=== PATIENT | male | born 1975 | race Two or more races ===

== ENCOUNTER 2018-09-30 07:29 | Inpatient (IN) | payer SELFPAY ==
[2018-09-30] VITALS (7 sets, daily range): BP systolic 98–165; BP diastolic 66–99
[~2018-09-30] VITALS: Ht 165.1 cm; Wt 63.0 kg
--- NOTE | 2018-09-30 07:24 | NUR ---
ED Nurse Note: PT BROUGHT IN BY [id number] FROM STREETS. AOX3 - PT NOT ORIENTED TO TIME. PER EMS, PT WAS PICKED UP FROM AN INTERSECTION AFTER FALLING DUE TO ETOH INTOXICATION. PER EMS, NO LOC. PT C/O FACIAL PAIN, 04/13. PT PRESENTS WITH BILATERAL KNEE ABRASIONS, LACERATION ABOVE RIGHT EYEBROW, ABRASION TO LEFT CHEEK AND SWELLING AROUND BILATERAL ORBITS, BILATERAL CHEEKS, AND LIPS. ONLY ACTIVELY BLEEDING SITE IS LACERATION ABOVE RIGHT EYEBROW. FACE CLEANED AND LACERATION DRESSED WITH GAUZE.
--- NOTE | 2018-09-30 07:36 | Emergency Room Report ---
History of Present Illness General Chief Complaint: Multiple Trauma/Fall Source: Patient, EMS Present Illness HPI Patient brought in by paramedics Patient was found on the street Moderate facial trauma Patient reports that he is an alcoholic and tripped and fell Denies any focal weakness however he complains of pain throughout his facial area Denies any chest pain or shortness of breath He feels anxious Denies any vomiting or diarrhea Denies any visual changes Allergies: Coded Allergies: No Known Allergies (Unverified , 09/30/18) Patient History Past Medical History: see triage record Pertinent Family History: none Reviewed Nursing Documentation: PMH: Agreed; PSxH: Agreed Nursing Documentation-PM Past Medical History: No History, Except For Hx Diabetes: Yes Review of Systems All Other Systems: negative except mentioned in HPI Physical Exam Vital Signs Date Time Temp Pulse Resp B/P (MAP) Pulse Ox O2 Delivery O2 Flow Rate FiO2 09/30/18 07:16 97.2 117 16 165/89 99 Room Air Sp02 EP Interpretation: reviewed, normal General Appearance: mild distress - in acute pain Head: other - Facial trauma including hematoma some abrasions involving bilateral maxillary area Eyes: bilateral eye PERRL ENT: dry mucus membranes Neck: supple, no meningismus Respiratory: lungs clear, no respiratory distress, no retraction Cardiovascular #1: no gallop, no JVD, tachycardia Gastrointestinal: non tender, soft Musculoskeletal: other - Patient moving extremities without obvious focal deficit, multiple abrasions however involving the facial area also bilateral hands Neurologic: alert, oriented x3 Skin: other - as above Lymphatic: no adenopathy Medical Decision Making Diagnostic Impression: Primary Impression: Alcohol withdrawal Additional Impression: Multiple injuries due to trauma ER Course Upon initial arrival patient has multiple imaging performed regarding Possible trauma to the facial region Blood work reveals some abnormalities patient further hydrated patient remains unstable throughout his stay Tremulous and uneasy Continues to ask for medication for sleep CT imaging does not reveal any obvious acute fractures or bleeding Given the patient's presentation and he is unstable for outpatient disposition Labs Test 09/30/18 07:53 White Blood Count 5.3 K/UL (4.8-10.8) Red Blood Count 4.64 M/UL (4.70-6.10) Hemoglobin 12.4 G/DL (14.2-18.0) Hematocrit 36.0 % (42.0-52.0) Mean Corpuscular Volume 78 FL (80-99) Mean Corpuscular Hemoglobin 26.8 PG (27.0-31.0) Mean Corpuscular Hemoglobin Concent 34.5 G/DL (32.0-36.0) Red Cell Distribution Width 14.9 % (11.6-14.8) Platelet Count 203 K/UL (150-450) Mean Platelet Volume 6.4 FL (6.5-10.1) Neutrophils (%) (Auto) 68.6 % (45.0-75.0) Lymphocytes (%) (Auto) 21.4 % (20.0-45.0) Monocytes (%) (Auto) 8.9 % (1.0-10.0) Eosinophils (%) (Auto) 0.0 % (0.0-3.0) Basophils (%) (Auto) 1.1 % (0.0-2.0) Sodium Level 132 MMOL/L (136-145) Potassium Level 3.4 MMOL/L (3.5-5.1) Chloride Level 89 MMOL/L (98-107) Carbon Dioxide Level 24 MMOL/L (21-32) Anion Gap 19 mmol/L (5-15) Blood Urea Nitrogen 7 mg/dL (7-18) Creatinine 1.0 MG/DL (0.55-1.30) Estimat Glomerular Filtration Rate > 60 mL/min (>60) Glucose Level 213 MG/DL (74-106) Calcium Level 8.5 MG/DL (8.5-10.1) Total Bilirubin 0.6 MG/DL (0.2-1.0) Aspartate Amino Transf (AST/SGOT) 423 U/L (15-37) Alanine Aminotransferase (ALT/SGPT) 222 U/L (12-78) Alkaline Phosphatase 139 U/L (46-116) Total Protein 7.1 G/DL (6.4-8.2) Albumin 3.7 G/DL (3.4-5.0) Globulin 3.4 g/dL Albumin/Globulin Ratio 1.1 (1.0-2.7) Lipase 79 U/L (73-393) Serum Alcohol 403 mg/dL Rhythm Strip Diag. Results EP Interpretation: yes Rate: 95 Rhythm: NSR, no PVC's, no ectopy CT/MRI/US Diagnostic Results CT/MRI/US Diagnostic Results : Impression CT C-spine no acute disease CT facialIMPRESSION: Moderate soft tissue contusions as described above. Left-sided nasal fracture, age indeterminate. This is probably old. Old left medial and anteromedial orbital wall fractures. CT headImpression: No acute intracranial bleed, mass effect or edema. Mild atrophy of the brain. Nonspecific white matter hypoattenuation probably due to chronic small vessel disease. Soft tissue contusions right periorbital and left frontal temporal scalp. Last Vital Signs Date Time Temp Pulse Resp B/P (MAP) Pulse Ox O2 Delivery O2 Flow Rate FiO2 09/30/18 07:16 97.2 117 16 165/89 99 Room Air Status: improved Disposition: ADMITTED INPATIENT Condition: Serious Nicola Yee DO Sep 30, 2018 07:36
[2018-09-30] MEDS ORDERED: LORazepam Inj 2mg/ml 1ml IV ONE ×3 (07:45→15:30)
[2018-09-30] MEDS ORDERED: Ketorolac 30mg Inj IV ONE (07:45)
--- NOTE | 2018-09-30 07:55 | NUR ---
ED Nurse Note: PT TO CT VIA VAL
--- NOTE | 2018-09-30 08:06 | NUR ---
ED Nurse Note: PT BACK FROM CT VIA VAL. PER RADIOLOGY, PT UNABLE TO REMAIN STILL. CT NOT COMPLETED.
[2018-09-30 08:10] LABS: ANION GAP 19 mmol/L (5-15); BLOOD UREA NITROGEN 7 mg/dL (7-18); CALCIUM 8.5 MG/DL (8.5-10.1); CARBON DIOXIDE 24 MMOL/L (21-32); CHLORIDE 89 MMOL/L (98-107); POTASSIUM 3.4 MMOL/L (3.5-5.1); SODIUM 132 MMOL/L (136-145)
[2018-09-30 08:11] LABS: BASOPHILS % (AUTO) 1.1 % (0.0-2.0); HEMOGLOBIN 12.4 G/DL (14.2-18.0); LYMPHOCYTES % (AUTO) 21.4 % (20.0-45.0); MEAN CORPUSCULAR VOLUME 78 FL (80-99); MONOCYTES % (AUTO) 8.9 % (1.0-10.0); NEUTROPHILS % (AUTO) 68.6 % (45.0-75.0); PLATELET COUNT 203 K/UL (150-450); RED BLOOD COUNT 4.64 M/UL (4.70-6.10); RED CELL DISTRIBUTION WIDTH 14.9 % (11.6-14.8); WHITE BLOOD COUNT 5.3 K/UL (4.8-10.8)
[2018-09-30 08:15] LABS: ALANINE AMINOTRANSFERASE 222 U/L (12-78); ALBUMIN 3.7 G/DL (3.4-5.0); ALBUMIN/GLOBULIN RATIO 1.1 (1.0-2.7); ALKALINE PHOSPHATASE 139 U/L (46-116); ASPARTATE AMINO TRANSFERASE 423 U/L (15-37); BILIRUBIN,TOTAL 0.6 MG/DL (0.2-1.0)
--- NOTE | 2018-09-30 08:35 | NUR ---
ED Nurse Note: RADIOLOGY AT BEDSIDE TO REATTEMPT CT. PT TO CT VIA GURNEY.
--- NOTE | 2018-09-30 09:00 | NUR ---
ED Nurse Note: PT BACK FROM CT VIA VAL. RADIOLOGY UNABLE TO CT PT DUE TO PT'S INABILITY TO REMAIN STILL. DR ELAINE HICKS.
[2018-09-30] MEDS ORDERED: Midazolam 2mg/2ml Inj IVP ONE (09:15)
--- NOTE | 2018-09-30 09:30 | NUR ---
ED Nurse Note: RADIOLOGY CALLED FOR CT REATTEMPT.
--- NOTE | 2018-09-30 09:35 | NUR ---
ED Nurse Note: RADIOLOGY AT BEDSIDE. PT TO CT VIA GURNEY ACCOMPANIED BY PRIMARY RN AND TECH.
--- NOTE | 2018-09-30 09:50 | NUR ---
ED Nurse Note: PT BACK FROM CT VIA VAL ACCOMPANIED BY PRIMARY RN AND TECH. CT COMPLETED.
--- NOTE | 2018-09-30 10:24 | Diagnostic Imaging Report ---
Indication: Headache. Trauma Technique: Contiguous 5 mm thick transaxial imaging of the head obtained in a Siemens Sensation [address] scanner. Soft tissue and bone windows generated. Automatic Exposure Control was utilized. Total Dose length Product (DLP): 1351.[address] Dose Index Volume (CTDIvol): 70.38 mGy Comparison: none Findings: There is mild prominence of the ventricles, basal cisterns, and cerebral sulci consistent with atrophy. Mild, nonspecific, white matter hypoattenuation is noted throughout the brain consistent with chronic small vessel disease. There is no midline shift, edema, acute hemorrhage, mass effect, or abnormal extra-axial fluid collections. There is a right periorbital soft tissue swelling and left frontal temporal soft tissue swelling noted. No acute fracture identified. Impression: No acute intracranial bleed, mass effect or edema. Mild atrophy of the brain. Nonspecific white matter hypoattenuation probably due to chronic small vessel disease. Soft tissue contusions right periorbital and left frontal temporal scalp. The CT scanner at [facility] is accredited by the [employer] and the scans are performed using dose optimization techniques as appropriate to a performed exam including Automatic Exposure control.
--- NOTE | 2018-09-30 10:31 | Diagnostic Imaging Report ---
Indication: Facial trauma and pain Technique: Continuous helical transaxial imaging of the maxillofacial structures obtained without intravenous contrast administration. Coronal 2-D reformats were also obtained. Study obtained in a Siemens sensation [address] Automatic Exposure Control was utilized. Total Dose length Product (DLP): 625.[address] Dose Index Volume (CTDIvol): 28.19 mGy Comparison: None Findings: There are areas of soft tissue swelling involving the left facial region, bilateral periorbital regions, frontal and temporal scalp on the left. Pre-maxillary and perimandibular soft tissue swelling also demonstrated. Findings consistent with soft tissue contusion/laceration injuries. There is evidence of an old left medial orbital wall fracture which also involves the anteromedial part of the left orbital floor. There is some herniation of intraorbital fat into Joe cells in the anterior ethmoid region. There is no definite acute fracture of the orbit identified. There is a fracture of the left nasal bone. Acuity of this is not certain as this may be old. There is mucosal thickening within the maxillary sinus and portions of the ethmoid sinus. The globes and remainder of the soft tissue orbital structures appear normal. There is no proptosis or retrobulbar hemorrhage. The mastoids are clear. The zygomatic bone, visualized mandible and TMJ and other osseous structures on this examination appear intact. IMPRESSION: Moderate soft tissue contusions as described above. Left-sided nasal fracture, age indeterminate. This is probably old. Old left medial and anteromedial orbital wall fractures. [place] [facility] [place] by the [employer] and the scans are performed using dose optimization techniques as appropriate to a performed exam including Automatic Exposure control.
[2018-09-30] MEDS ORDERED: Thiamine 100mg tab ORAL ONE (10:45)
--- NOTE | 2018-09-30 10:46 | Diagnostic Imaging Report ---
Indication: Neck pain. Technique: Continuous helical imaging of the cervical spine was obtained transaxially from the skull base to the upper thoracic spine. 2-D coronal and sagittal reformatted images were obtained. Automatic Exposure Control was utilized. Total Dose length Product (DLP): 288.[address] Dose Index Volume (CTDIvol): 12.94 mGy Comparison: None Findings: There is no evidence of an acute fracture or malalignment. Atlantoaxial alignment appears normal. Height and configuration of the vertebral bodies and intervertebral discs are within normal limits. Uncovertebral joints and facets are unremarkable. There is no soft tissue swelling. Impression: Negative cervical spine CT The CT scanner at [facility] is accredited by the [employer] and the scans are performed using dose optimization techniques as appropriate to a performed exam including Automatic Exposure control.
--- NOTE | 2018-09-30 13:00 | NUR ---
ED Nurse Note: DR HENRY AT BEDSIDE. PT UNABLE TO AMBULATE WITH STEADY GAIT.
[2018-09-30] MEDS ORDERED: UNOBMED (14:12)
--- NOTE | 2018-09-30 16:02 | NUR ---
NURSE NOTES: Received telephone report from Ulises LUZ from ED.
--- NOTE | 2018-09-30 16:06 | NUR ---
ED Nurse Note: TELE UNIT CALLED FOR PT TRANSFER. REPORT GIVEN SUKH PAYTON. RECEIVING RN NEEDS 15 MINUTES. PT WILL BE TAKEN UP AT THAT TIME.
--- NOTE | 2018-09-30 16:07 | NUR ---
nursing platform material handling supervisor rocio has been notified may need sitter for saftey of the patient
--- NOTE | 2018-09-30 16:15 | NUR ---
ED Nurse Note: DR MANTILLA AT BEDSIDE FOR EVALUATION.
--- NOTE | 2018-09-30 16:22 | Consultation ---
History of Present Illness General Chief Complaint: Multiple Trauma/Fall Present Illness HPI 42-year-old male with hx of alcohol dependence who was brought to the emergency room. In the er he had severe agitation and alcohol withdrawal. the pt was unable to provide hx as her was confused and had cognitive impairment Allergies: Coded Allergies: No Known Allergies (Unverified , 09/30/18) Medication History Miscellaneous Medications Unable to Obtain Medications (Unable To Obtain Meds), (Reported) Patient History Limited by: medical condition History Provided By: Medical Record, PMD Healthcare decision maker Resuscitation status Advanced Directive on File Past Medical/Surgical History Past Medical/Surgical History: (1) Multiple injuries due to trauma (2) Alcohol withdrawal Review of Systems Psychiatric: Reports: anxiety, hallucinations Physical Exam General Appearance: lethargic, confused, agitated Last 24 Hour Vital Signs Date Time Temp Pulse Resp B/P (MAP) Pulse Ox O2 Delivery O2 Flow Rate FiO2 09/30/18 16:07 98.2 82 16 136/82 98 Room Air 09/30/18 14:30 98.1 84 14 142/86 99 Room Air 09/30/18 12:30 97.7 95 16 126/82 98 Room Air 09/30/18 10:30 97.6 92 15 98/66 96 Room Air 09/30/18 09:29 97.3 110 21 127/67 97 Room Air 09/30/18 07:29 97.4 122 17 165/99 99 Room Air 09/30/18 07:29 122 17 Room Air 09/30/18 07:16 97.2 117 16 165/89 99 Room Air Laboratory Tests Test 09/30/18 07:53 White Blood Count 5.3 K/UL (4.8-10.8) Red Blood Count 4.64 M/UL (4.70-6.10) L Hemoglobin 12.4 G/DL (14.2-18.0) L Hematocrit 36.0 % (42.0-52.0) L Mean Corpuscular Volume 78 FL (80-99) L Mean Corpuscular Hemoglobin 26.8 PG (27.0-31.0) L Mean Corpuscular Hemoglobin Concent 34.5 G/DL (32.0-36.0) Red Cell Distribution Width 14.9 % (11.6-14.8) H Platelet Count 203 K/UL (150-450) Mean Platelet Volume 6.4 FL (6.5-10.1) L Neutrophils (%) (Auto) 68.6 % (45.0-75.0) Lymphocytes (%) (Auto) 21.4 % (20.0-45.0) Monocytes (%) (Auto) 8.9 % (1.0-10.0) Eosinophils (%) (Auto) 0.0 % (0.0-3.0) Basophils (%) (Auto) 1.1 % (0.0-2.0) Sodium Level 132 MMOL/L (136-145) L Potassium Level 3.4 MMOL/L (3.5-5.1) L Chloride Level 89 MMOL/L (98-107) L Carbon Dioxide Level 24 MMOL/L (21-32) Anion Gap 19 mmol/L (5-15) H Blood Urea Nitrogen 7 mg/dL (7-18) Creatinine 1.0 MG/DL (0.55-1.30) Estimat Glomerular Filtration Rate > 60 mL/min (>60) Glucose Level 213 MG/DL (74-106) H Calcium Level 8.5 MG/DL (8.5-10.1) Total Bilirubin 0.6 MG/DL (0.2-1.0) Aspartate Amino Transf (AST/SGOT) 423 U/L (15-37) H Alanine Aminotransferase (ALT/SGPT) 222 U/L (12-78) H Alkaline Phosphatase 139 U/L (46-116) H Total Protein 7.1 G/DL (6.4-8.2) Albumin 3.7 G/DL (3.4-5.0) Globulin 3.4 g/dL Albumin/Globulin Ratio 1.1 (1.0-2.7) Lipase 79 U/L (73-393) Serum Alcohol 403 mg/dL Height (Feet): 5 Height (Inches): 5.00 Weight (Pounds): 150 Medications Current Medications Medications (Trade) Dose Ordered Sig/[place] Route PRN Reason Start Time Stop Time Status Last Admin Dose Admin Sodium Chloride 1,000 ml @ 200 mls/hr Q5H IV 09/30/18 15:30 10/30/18 15:29 09/30/18 15:35 Assessment/Plan Problem List: (1) Alcohol dependence ICD Codes: F10.20 - Alcohol dependence, uncomplicated SNOMED: 12952139 (2) Alcohol withdrawal ICD Codes: F10.239 - Alcohol dependence with withdrawal, unspecified SNOMED: 291437782 Assessment/Plan Valium 10mg po tid thiamin folate Ativan Ashleigh Arvizu MD Sep 30, 2018 16:22
--- NOTE | 2018-09-30 16:43 | NUR ---
ED Nurse Note: PT TAKEN UP TO TELE UNIT ON LABORER HOISTING WITH ALL BELONGINGS ACCOMPANIED BY PRIMARY RN AND EMT.
--- NOTE | 2018-09-30 16:50 | NUR ---
NURSE NOTES: Pt. on the unit. Pt. asleep but arousable. No sign of distress. No grimacing noted. IV site at right AC #20g. in placed patent/intact. Bed in low position, locked. Call light within reach. Will cont. to monitor.
[2018-09-30] MEDS ORDERED: Thiamine 100mg tab ORAL SCH (18:00)
--- NOTE | 2018-09-30 19:21 | NUR ---
CASE MANAGEMENT: REVIEW 42/M PRESENTED TO ED FROM HOME CC: MULTIPLE FALL/TRAUMA SI: ALCOHOL WITHDRAWAL T 97.2 HR 117 RR 16 BP 165/89 SAT 97% ROOM AIR K 3.4 AST 423 ALT 222 ALK PHOS 139 SERUM ALCOHOL 403 IS: NS IVF BOLUS X1 TORADOL IV X1 ATIVAN IV X1 VERSED IV X1 THIAMINE PO X1 FOLATE PO QD BANANA BAG IVF BOLUS X1 PATIENT ADMITTED TO TELEMETRY UNIT 09/30/2018 DCP: PATIENT IS FROM HOME
--- NOTE | 2018-09-30 19:30 | NUR ---
NURSE NOTES: Received report from Alyssa Freeman RN. Pt is sitting in the bed, ST 104 in the monitor, no respiratory distress in RA. Pt is appears to be agitated and asking sleeping pill in Urdu. Will assist pt. Bed alarm is on, bed in lowest position, breaks are engaged. Urinal, Call light, and side table are w/in reach. Will follow plans of care. Addendum: 10/01/18 at 0421 by ANNABELLE SANFORD RN Endorsed that PCP is aware of Hx of DM, NNO.
--- NOTE | 2018-09-30 19:37 | NUR ---
HAND-OFF: Report given to Alia Parish RN. Pt. remain stable.
[2018-09-30] MEDS ORDERED: Folic Acid 1 MG, Magnesium Sulfate 2,000 MG, Multivitamin - 12 Injection 10 ML in Sodiu... IV SCH (20:00)
[2018-09-30] MEDS: Thiamine 100mg in D5W 55ml IVPB SCH (20:32)
[2018-09-30] MEDS: Folic Acid 1 MG, Magnesium Sulfate 2,000 MG, Multivitamin - 12 Injection 10 ML in Sodiu... IV SCH (20:32)
[2018-09-30] MEDS: LORazepam Inj 2mg/ml 1ml IV PRN ×2 (21:26→23:54)
[2018-10-01] VITALS: BP 159/98
--- NOTE | 2018-10-01 01:46 | NUR ---
NURSE NOTES: Pt was up and urinated in the floor. Pt was assisted to use urinal. Pt continuously asked to have more med to sleep. Second dose PRN med was given. Will continue to monitor.
[2018-10-01] MEDS: LORazepam Inj 2mg/ml 1ml IV PRN ×4 (03:40→23:51)
[2018-10-01 04:00] VITALS: BP 143/84
--- NOTE | 2018-10-01 06:03 | NUR ---
NURSE NOTES: Pt was cleaned, dried, and repositioned. Pt requested ativan. Med will be given.
--- NOTE | 2018-10-01 07:10 | NUR ---
HAND-OFF: Report given to SUKH Coronel.
[2018-10-01 08:00] VITALS: BP 142/95
--- NOTE | 2018-10-01 08:00 | NUR ---
MAO NOTES: Pt asleep/lethargic, in bed, breathing easily on room air, responds to load voice/shaking with mumbled response. Pt denies SOB but c/o headache at this time. Hematoma above left eyebrow, open to air. Vital signs stable with SR @ 106 on monitor. IV access Right a/c, flushed with 10 ml NS and locked. IV access left forearm with banana bag running. SCDs at bedside, pt refusing to wear. Urinal available at bedside. Bed left in low position, exit alarm set, side rails up x 3 and call light left near pt's hand.
[2018-10-01 12:00] VITALS: BP 145/94
[2018-10-01 14:49] LABS: ALANINE AMINOTRANSFERASE 166 U/L (12-78); ALBUMIN 3.1 G/DL (3.4-5.0); ALBUMIN/GLOBULIN RATIO 1.1 (1.0-2.7); ALKALINE PHOSPHATASE 143 U/L (46-116); ANION GAP 9 mmol/L (5-15); ASPARTATE AMINO TRANSFERASE 230 U/L (15-37); BILIRUBIN,TOTAL 0.9 MG/DL (0.2-1.0); BLOOD UREA NITROGEN 6 mg/dL (7-18); CALCIUM 8.7 MG/DL (8.5-10.1); CARBON DIOXIDE 29 MMOL/L (21-32); CHLORIDE 91 MMOL/L (98-107); SODIUM 129 MMOL/L (136-145)
[2018-10-01 16:00] VITALS: BP 143/93
--- NOTE | 2018-10-01 16:59 | NUR ---
CASE MANAGEMENT: REVIEW SI: ALCOHOL WITHDRAWAL T 99.5 HR 103 RR 21 BP 145/94 SAT 98% ROOM AIR NA 129 K 3.0 GLUCOSE 359 AST 230 ALT 166 ALK PHOS 143 IS: BANANA BAG IVF @ 100ML/HR VIT B1 IVF Q24HR VALIUM PO Q2HR PRN TELEMETRY UNIT STATUS DCP: PATIENT IS FROM HOME
--- NOTE | 2018-10-01 19:10 | NUR ---
NURSE NOTES: Received report from Kristal Angeles RN. Patient is asleep in bed, A/O x2. Sinus rhythm on residential monitor. No s/s of acute distress noted. Saturating well on room air. Left forearm 20g IV saline lock, intact and patent. Right AC 20g IV saline lock, intact and patent. Bed locked in lowest position with side rails up x3. Call light left within reach. Will continue to monitor.
[2018-10-01 20:00] VITALS: BP 128/90
[2018-10-01] MEDS: Thiamine 100mg in D5W 55ml IVPB SCH (20:00)
--- NOTE | 2018-10-01 20:30 | History and Physical Report ---
DATE OF ADMISSION: 09/30/2018 CHIEF COMPLAINT: Alcohol withdrawal. HISTORY OF PRESENT ILLNESS: The patient is a 42-year-old male that was found on the floor intoxicated. He was brought to the emergency room. He had severe agitation and alcohol withdrawal. He was confused and was unable to provide any history. Because of alcohol withdrawal, he is now admitted. PAST MEDICAL HISTORY: None. PAST SURGICAL HISTORY: Unknown. CURRENT MEDICATIONS: None. FAMILY HISTORY: Unknown. SOCIAL HISTORY: The patient is a heavy drinker. It is unclear what his last drink was, but his alcohol level in the emergency room was 400. PHYSICAL EXAMINATION: VITAL SIGNS: Temp 98, pulse 94, respirations 18, and blood pressure 159/98. GENERAL: The patient is well-developed, there is an abrasion to the right and left cheek. NECK: Supple. HEART: Regular. LUNGS: Lungs are clear. ABDOMEN: Soft. EXTREMITIES: Without clubbing or cyanosis. The patient is unable to comply for neurologic exam. LABORATORY DATA: Alcohol level was 403. White count 5, hemoglobin 12. Sodium 132, potassium 3.4, chloride 89, bicarb 24, BUN was 7, creatinine is 1. AST 423, ALT was 222. ASSESSMENT: This is a 42-year-old male admitted with alcohol intoxication. Alcohol withdrawal. PLAN: Intravenous hydration, Banana Bag, thiamine, Ativan for withdrawal, monitor laboratories. Nash Caban M.D. DR: MARK JOB#: [id number] CC:
[2018-10-01] MEDS: Folic Acid 1 MG, Magnesium Sulfate 2,000 MG, Multivitamin - 12 Injection 10 ML in Sodiu... IV SCH (21:05)
--- NOTE | 2018-10-01 22:15 | General Progress Note ---
Assessment/Plan Problem List: (1) Alcohol dependence ICD Codes: F10.20 - Alcohol dependence, uncomplicated SNOMED: 45314857 (2) Alcohol withdrawal ICD Codes: F10.239 - Alcohol dependence with withdrawal, unspecified SNOMED: 832832913 Status: progressing Assessment/Plan Valium 10mg po tid thiamin folate Ativan prn Subjective Constitutional: Reports: malaise, weakness Neurologic/Psychiatric: Reports: anxiety, emotional problems Allergies: Coded Allergies: No Known Allergies (Unverified , 09/30/18) Objective Last 24 Hour Vital Signs Date Time Temp Pulse Resp B/P (MAP) Pulse Ox O2 Delivery O2 Flow Rate FiO2 10/01/18 21:00 Room Air 10/01/18 20:00 98.9 98 20 128/90 (103) 97 10/01/18 19:37 91 10/01/18 16:00 97 10/01/18 16:00 97.7 102 21 143/93 (110) 99 10/01/18 12:00 98.0 100 19 145/94 (111) 98 10/01/18 12:00 100 10/01/18 09:00 Room Air 10/01/18 08:00 98.3 103 21 142/95 (111) 99 10/01/18 08:00 103 10/01/18 04:00 99.5 95 18 143/84 (103) 99 10/01/18 03:55 94 10/01/18 00:00 98.9 94 18 159/98 (118) 98 09/30/18 23:43 94 Intake and Output 09/30/18 10/01/18 19:00 07:00 Intake Total 3150 ml 1071 ml Output Total 700 ml 2000 ml Balance 2450 ml -929 ml Intake Oral 150 ml IV Total 3000 ml 1071 ml Output Urine Total 700 ml 2000 ml # Voids 5 Laboratory Tests 10/01/18 14:10: Sodium Level 129L, Potassium Level 3.0L, Chloride Level 91L, Carbon Dioxide Level 29, Anion Gap 9, Blood Urea Nitrogen 6L, Creatinine 1.0, Estimat Glomerular Filtration Rate > 60, Glucose Level 359#H, Calcium Level 8.7, Total Bilirubin 0.9, Aspartate Amino Transf (AST/SGOT) 230H, Alanine Aminotransferase (ALT/SGPT) 166H, Alkaline Phosphatase 143H, Total Protein 5.9L, Albumin 3.1L, Globulin 2.8, Albumin/Globulin Ratio 1.1 Height (Feet): 5 Height (Inches): 5.00 Weight (Pounds): 150 General Appearance: alert, confused, agitated Ashleigh Sutherland MD Oct 01, 2018 22:15
[2018-10-02] VITALS: BP 127/95
[2018-10-02 04:00] VITALS: BP 113/77
[2018-10-02 06:56] LABS: ALANINE AMINOTRANSFERASE 149 U/L (12-78); ALBUMIN 3.1 G/DL (3.4-5.0); ALBUMIN/GLOBULIN RATIO 0.9 (1.0-2.7); ALKALINE PHOSPHATASE 131 U/L (46-116); ANION GAP 10 mmol/L (5-15); ASPARTATE AMINO TRANSFERASE 131 U/L (15-37); BILIRUBIN,TOTAL 0.7 MG/DL (0.2-1.0); BLOOD UREA NITROGEN 6 mg/dL (7-18); CALCIUM 8.8 MG/DL (8.5-10.1); CARBON DIOXIDE 26 MMOL/L (21-32); CHLORIDE 100 MMOL/L (98-107); CREATININE 0.8 MG/DL (0.55-1.30); POTASSIUM 3.4 MMOL/L (3.5-5.1); SODIUM 136 MMOL/L (136-145)
--- NOTE | 2018-10-02 07:20 | NUR ---
HAND-OFF: Report given to Sebastian Miguel RN and Neto Conner RN.
[2018-10-02 08:00] VITALS: BP 137/74
[2018-10-02] MEDS: LORazepam Inj 2mg/ml 1ml IV PRN (10:20)
[2018-10-02 12:00] VITALS: BP 121/75
[2018-10-02] MEDS ORDERED: NS 275ml ONE (12:43)
[2018-10-02] MEDS ORDERED: Sodium Chloride for KCL Premix x 2hrs IV SCH (14:30)
[2018-10-02] MEDS: Maxitrol Opth Susp 5ml BOTH EYES SCH ×2 (15:25→17:50)
--- NOTE | 2018-10-02 15:40 | NUR ---
CASE MANAGEMENT: REVIEW 10/02/2018 SI: ALCOHOL WITHDRAWAL T 99.5 HR 100 RR 20 B/P 137/74 SATS 98% ON RA K 3.4 BUN 6 GLU 108 AST 131 ALT 149 ALP 131 IS: BANANA BAG IVF @ 100ML/HR VIT B1 IVF Q24HR VALIUM PO Q2HR PRN TELEMETRY UNIT STATUS DCP: PATIENT IS FROM HOME
[2018-10-02 16:00] VITALS: BP 120/74
--- NOTE | 2018-10-02 18:45 | Progress Note ---
DATE: 10/02/2018 SUBJECTIVE: There have been no overnight events. The patient remains intermittently agitated, required IV Ativan. OBJECTIVE: VITAL SIGNS: Temperature 98.7, pulse , blood pressure 121/75. GENERAL: The patient is well-developed. There are abrasions to the face noted. There is some discharge from the eyes. HEART: Regular. LUNGS: Clear. ABDOMEN: Soft. EXTREMITIES: Without clubbing or cyanosis. The patient continues to have tremor. LABORATORY DATA: Sodium 136, potassium 3.4, AST 131, ALT 149, alkaline phosphatase 131. ASSESSMENT: This is a 42-year-old male admitted with alcohol withdrawal, alcohol intoxication, hepatitis due to the above. PLAN: 1. IV hydration. 2. Continue Ativan as needed. 3. Antibiotic eyedrops. 4. Multivitamins, thiamine supplements. Nash Caban M.D. DR: Olamide JOB#: [id number] CC:
--- NOTE | 2018-10-02 19:05 | NUR ---
HAND-OFF: Report given to Susi Shirley.
--- NOTE | 2018-10-02 19:06 | NUR ---
NURSE NOTES: RECEIVED BEDSIDE REPORT FROM SUKH BAIG. PT IS X4, LITHUANIAN SPEAKING. DOES NOT REPORT ANY PAIN. ABLE TO MAKE NEEDS KNOWN. PIN PUSHER SHOWING NSR. SATING ON RA WELL. SKIN IS CLEAN DRY, HEAD TRAUMA FROM S/P FALL, NO ACTIVE BLEEDING VISIBLE, ALL CT SCANS NEGATIVE. RAC 20 AND LFA 20 ASYMPTOMATIC. BED IS LOCKED IN LOWEST POSITION, SR X3, CALL ANNA W/ IN REACH, BED ALARM ON. WILL CONTINUE TO MONITOR AND FOLLOW PLAN OF CARE.
[2018-10-02 20:00] VITALS: BP 125/81
[2018-10-02] MEDS: Folic Acid 1 MG, Magnesium Sulfate 2,000 MG, Multivitamin - 12 Injection 10 ML in Sodiu... IV SCH (20:02)
[2018-10-02] MEDS: Thiamine 100mg in D5W 55ml IVPB SCH (20:02)
--- NOTE | 2018-10-02 22:57 | General Progress Note ---
Assessment/Plan Problem List: (1) Alcohol dependence ICD Codes: F10.20 - Alcohol dependence, uncomplicated SNOMED: 53255587 (2) Alcohol withdrawal ICD Codes: F10.239 - Alcohol dependence with withdrawal, unspecified SNOMED: 453116610 Assessment/Plan Valium 10mg po tid thiamin folate Ativan prn Subjective Neurologic/Psychiatric: Reports: anxiety, depressed, emotional problems Allergies: Coded Allergies: No Known Allergies (Unverified , 09/30/18) Objective Last 24 Hour Vital Signs Date Time Temp Pulse Resp B/P (MAP) Pulse Ox O2 Delivery O2 Flow Rate FiO2 10/02/18 21:00 Room Air 10/02/18 20:00 99.6 86 18 125/81 (96) 97 10/02/18 20:00 87 10/02/18 16:00 97.4 84 16 120/74 (89) 98 10/02/18 15:35 89 10/02/18 12:00 98.7 20 121/75 (90) 96 10/02/18 11:54 90 10/02/18 10:33 Room Air 10/02/18 08:00 99.5 100 20 137/74 (95) 98 10/02/18 07:57 100 10/02/18 04:00 98.0 92 20 113/77 (89) 98 10/02/18 03:36 90 10/02/18 00:00 99.2 101 20 127/95 (106) 99 10/01/18 23:46 89 Intake and Output 10/01/18 10/02/18 18:59 06:59 Intake Total 610 ml 1155.333 ml Output Total 2000 ml 1300 ml Balance -1390 ml -144.667 ml Intake Oral 510 ml 160 ml IV Total 100 ml 995.333 ml Output Urine Total 2000 ml 1300 ml # Voids 9 3 Laboratory Tests 10/02/18 06:05: Sodium Level 136, Potassium Level 3.4L, Chloride Level 100, Carbon Dioxide Level 26, Anion Gap 10, Blood Urea Nitrogen 6L, Creatinine 0.8, Estimat Glomerular Filtration Rate > 60, Glucose Level 180#H, Calcium Level 8.8, Total Bilirubin 0.7, Aspartate Amino Transf (AST/SGOT) 131H, Alanine Aminotransferase (ALT/SGPT) 149H, Alkaline Phosphatase 131H, Total Protein 6.5, Albumin 3.1L, Globulin 3.4, Albumin/Globulin Ratio 0.9L Height (Feet): 5 Height (Inches): 5.00 Weight (Pounds): 150 General Appearance: alert, moderate distress, agitated Ashleigh Sutherland MD Oct 02, 2018 22:57
[2018-10-03] VITALS: BP 118/72
[2018-10-03 04:00] VITALS: BP 126/74
--- NOTE | 2018-10-03 05:45 | NUR ---
NURSE NOTES: SPOKE W/ DR. BETANCUR REGARDING PT HX OF DM2 W/ NO ACCUCHEK SCHEDULED. STATED HE WILL WILL IN THE ORDER. ALSO ASKED ABOUT PRN ATIVAN; TOLD MD THAT PT HAS SCHEDULED DIAZEPAM Q8. STATED THAT HE WILL DC DIAZEPAM BC HE CANNOT GO HOME ON IT. WILL FOLLOW UP.
[2018-10-03 07:53] LABS: ALANINE AMINOTRANSFERASE 138 U/L (12-78); ALBUMIN 3.2 G/DL (3.4-5.0); ALBUMIN/GLOBULIN RATIO 0.9 (1.0-2.7); ALKALINE PHOSPHATASE 134 U/L (46-116); ANION GAP 10 mmol/L (5-15); ASPARTATE AMINO TRANSFERASE 102 U/L (15-37); BILIRUBIN,TOTAL 0.7 MG/DL (0.2-1.0); BLOOD UREA NITROGEN 6 mg/dL (7-18); CALCIUM 9.1 MG/DL (8.5-10.1); CARBON DIOXIDE 26 MMOL/L (21-32); CHLORIDE 98 MMOL/L (98-107); CREATININE 0.7 MG/DL (0.55-1.30); POTASSIUM 3.8 MMOL/L (3.5-5.1); SODIUM 134 MMOL/L (136-145)
[2018-10-03 07:59] LABS: AMMONIA 36 umol/L (11-32)
[2018-10-03 08:00] VITALS: BP 118/79
[2018-10-03] MEDS: Maxitrol Opth Susp 5ml BOTH EYES SCH ×3 (10:25→17:54)
--- NOTE | 2018-10-03 11:19 | General Progress Note ---
Assessment/Plan Problem List: (1) Multiple injuries due to trauma ICD Codes: T07.XXXA - Unspecified multiple injuries, initial encounter SNOMED: 576033918 (2) Alcohol withdrawal ICD Codes: F10.239 - Alcohol dependence with withdrawal, unspecified SNOMED: 938299779 (3) Alcohol dependence ICD Codes: F10.20 - Alcohol dependence, uncomplicated SNOMED: 13328924 Status: stable Assessment/Plan cont current rx check ua and cxr Subjective ROS Limited/Unobtainable: No Constitutional: Reports: malaise, weakness HEENT: Reports: no symptoms Cardiovascular: Reports: no symptoms Respiratory: Reports: no symptoms Gastrointestinal/Abdominal: Reports: no symptoms Genitourinary: Reports: no symptoms Neurologic/Psychiatric: Reports: no symptoms Endocrine: Reports: no symptoms Hematologic/Lymphatic: Reports: no symptoms Allergies: Coded Allergies: No Known Allergies (Unverified , 09/30/18) All Systems: reviewed and negative except above Subjective no events. still on valium. no fever or chills Objective Last 24 Hour Vital Signs Date Time Temp Pulse Resp B/P (MAP) Pulse Ox O2 Delivery O2 Flow Rate FiO2 10/03/18 08:00 100.1 94 20 118/79 (92) 99 10/03/18 04:00 98.2 80 18 126/74 (91) 99 10/03/18 04:00 75 10/03/18 00:00 98.4 69 18 118/72 (87) 99 10/03/18 00:00 73 10/02/18 21:00 Room Air 10/02/18 20:00 99.6 86 18 125/81 (96) 97 10/02/18 20:00 87 10/02/18 16:00 97.4 84 16 120/74 (89) 98 10/02/18 15:35 89 10/02/18 12:00 98.7 20 121/75 (90) 96 10/02/18 11:54 90 Intake and Output 10/02/18 10/03/18 19:00 07:00 Intake Total 800 ml 1536 ml Output Total 2200 ml 1200 ml Balance -1400 ml 336 ml Intake Oral 800 ml 480 ml IV Total 1056 ml Output Urine Total 2200 ml 1200 ml Laboratory Tests 10/03/18 07:15: Sodium Level 134L, Potassium Level 3.8, Chloride Level 98, Carbon Dioxide Level 26, Anion Gap 10, Blood Urea Nitrogen 6L, Creatinine 0.7, Estimat Glomerular Filtration Rate > 60, Glucose Level 177H, Hemoglobin A1c 8.8H, Calcium Level 9.1 , Total Bilirubin 0.7, Aspartate Amino Transf (AST/SGOT) 102H, Alanine Aminotransferase (ALT/SGPT) 138H, Alkaline Phosphatase 134H, Ammonia 36H, Total Protein 6.9, Albumin 3.2L, Globulin 3.7, Albumin/Globulin Ratio 0.9L Height (Feet): 5 Height (Inches): 5.00 Weight (Pounds): 150 General Appearance: WD/WN, alert Neck: supple Cardiovascular: normal peripheral pulses, normal rate, regular rhythm Respiratory/Chest: chest wall non-tender, lungs clear, normal breath sounds, no respiratory distress Abdomen: normal bowel sounds, non tender, soft, no organomegaly Edema: no edema noted Arm (L), no edema noted Arm (R), no edema noted Leg (L), no edema noted Leg (R), no edema noted Pedal (L), no edema noted Pedal (R), no edema noted Generalized Nash Caban MD Oct 03, 2018 11:19
--- NOTE | 2018-10-03 11:57 | NUR ---
Social Service Note [facility] and [facility] completed a skip trace to locate patient's next of kin. Carol () [phone] unable to leave a message Jonathan (brother) [phone]. SW spoke with patient's brother who was unaware patient was hospitalized. Brother states patient is a chronic alcoholic. Brother will visit patient this evening and will inform of patient's location. Patient is non-funded and non-documented. Community resources will be provided for alcohol dependency and will be placed in patient's chart.
[2018-10-03 12:00] VITALS: BP 121/80
--- NOTE | 2018-10-03 12:46 | NUR ---
RADIOLOGY DEPT., CHEST X-RAY DONE.-P.DYE
--- NOTE | 2018-10-03 12:52 | Cardiology Report ---
APPROVED REPORT EKG Measurement Heart [id number] Sinus rhythm Nonspecific ST abnormality Abnormal ECG
--- NOTE | 2018-10-03 14:23 | Diagnostic Imaging Report ---
Indication: Cough Technique: One view of the chest Comparison: Findings: Lungs and pleural spaces are clear. Heart size is normal Impression: No acute process
--- NOTE | 2018-10-03 14:58 | NUR ---
P.T Note: P.T evaluation completed. Based on P.T evaluation, patient functional at baselined : independent with ADL/functional mobilities and gait/ambulation activities. Pt's current functional status does not warrant skilled P.T service at this time. Pt DC'd from P.T service. Thank you for this referral.
--- NOTE | 2018-10-03 15:42 | NUR ---
CASE MANAGEMENT:REVIEW 10/03/18 SI: ALCOHOL DEPENDENCE?WITHDRAWAL 100.1 102 18 121/80 95% ON RA GLUCOSE+177 AST/DVZ035/138 AMMONIA+36 IS: VALIUM PO Q2HRS PRN PROTONIX PO QD ZYPREXA PO QHS IV BANANA BAG @100/HR IV THIAMINE Q24 : TELEMETRY STATUS
[2018-10-03 16:00] VITALS: BP 121/80
[2018-10-03 18:21] LABS: APPEARANCE,URINE CLEAR; BILIRUBIN, URINE NEGATIVE (NEGATIVE); COLOR,URINE PALE YELLOW; GLUCOSE, URINE (UA) 4+ (NEGATIVE); KETONES,URINE NEGATIVE (NEGATIVE); LEUKOCYTE ESTERASE ,URINE NEGATIVE (NEGATIVE); NITRITE,URINE NEGATIVE (NEGATIVE); PH,URINE 7 (4.5-8.0); PROTEIN,URINE NEGATIVE (NEGATIVE); UROBILINOGEN,URINE 1 MG/DL (0.0-1.0)
--- NOTE | 2018-10-03 19:25 | NUR ---
NURSE NOTES: Received report from Candace Farrar RN. Pt is sleeping in the bed w/o distress, arousable by voice. HOB 30 degree. Bed alarm on, bed in lowest, padded side rails up x2, and breaks are engaged. Call light and side table are w/in reach. Will follow plans of care.
--- NOTE | 2018-10-03 19:33 | NUR ---
HAND-OFF: Report given to .PILAR SANFORD RN.
[2018-10-03 20:00] VITALS: BP 117/77
[2018-10-03] MEDS: Thiamine 100mg in D5W 55ml IVPB SCH (21:16)
[2018-10-03] MEDS: Folic Acid 1 MG, Magnesium Sulfate 2,000 MG, Multivitamin - 12 Injection 10 ML in Sodiu... IV SCH (21:17)
[2018-10-04] VITALS: BP 100/77
--- NOTE | 2018-10-04 01:00 | NUR ---
NURSE NOTES: Pt was assisted to use bathroom and had BM. No distress at this time. Will continue to monitor.
--- NOTE | 2018-10-04 03:55 | NUR ---
NURSE NOTES: Report received from Alia LUZ. Pt is resting in bed in stable condition. Pt is awake, alert, and oriented x3. Pt is on room air and breathing is even and unlabored. No acute distress noted. IV sites are asymptomatic, patent, and intact. Bed is in lowest position with brake engaged, side rails up x2, and bed alarm on. Call light and side table placed within reach. Will continue to monitor.
--- NOTE | 2018-10-04 03:55 | NUR ---
HAND-OFF: Report given to SUKH Perry.
[2018-10-04 04:00] VITALS: BP 121/79
--- NOTE | 2018-10-04 07:32 | NUR ---
HAND-OFF: Report given to Carol Mora RN. Pt is resting in bed in stable condition. No acute distress noted. Endorsed plan of care.
[2018-10-04 08:00] VITALS: BP 130/82
--- NOTE | 2018-10-04 08:25 | NUR ---
NURSE NOTES: recvd pt. Pt is awake and alert AOx4,Greek speaking. Pt is on room air with no sign of sob or resp distress. IV site is c/d/i. Bed is in lowest position with brake engaged, side rails up x2, and bed alarm on.Will continue with plan of care.
--- NOTE | 2018-10-04 08:51 | NUR ---
CASE MANAGEMENT:REVIEW 10/04/18 SI: ALCOHOL DEPENDENCE/WITHDRAWAL 99.4 108 20 130/82 99% ON RA IS: VALIUM PO Q2HRS PRN PROTONIX PO QD ZYPREXA PO QHS IV BANANA BAG @100/HR IV THIAMINE Q24 IV ATIVAN Q2HRS PRN ANXIETY : TELEMETRY STATUS DCP: FROM HOME
[2018-10-04] MEDS: Maxitrol Opth Susp 5ml BOTH EYES SCH ×3 (10:07→19:00)
[2018-10-04] MEDS: LORazepam Inj 2mg/ml 1ml IV PRN ×2 (10:32→20:29)
--- NOTE | 2018-10-04 10:39 | General Progress Note ---
Assessment/Plan Problem List: (1) Multiple injuries due to trauma ICD Codes: T07.XXXA - Unspecified multiple injuries, initial encounter SNOMED: 486126483 (2) Alcohol withdrawal ICD Codes: F10.239 - Alcohol dependence with withdrawal, unspecified SNOMED: 675988194 (3) Alcohol dependence ICD Codes: F10.20 - Alcohol dependence, uncomplicated SNOMED: 56757915 Assessment/Plan cont current rx check ua and cxr dc valium prn ativan alone Subjective ROS Limited/Unobtainable: No Constitutional: Reports: malaise, weakness HEENT: Reports: no symptoms Cardiovascular: Reports: no symptoms Respiratory: Reports: no symptoms Gastrointestinal/Abdominal: Reports: no symptoms Genitourinary: Reports: no symptoms Neurologic/Psychiatric: Reports: no symptoms Endocrine: Reports: no symptoms Hematologic/Lymphatic: Reports: no symptoms Allergies: Coded Allergies: No Known Allergies (Unverified , 09/30/18) All Systems: reviewed and negative except above Subjective no events. still on valium. no fever or chills Objective Last 24 Hour Vital Signs Date Time Temp Pulse Resp B/P (MAP) Pulse Ox O2 Delivery O2 Flow Rate FiO2 10/04/18 09:00 Room Air 10/04/18 08:00 106 10/04/18 08:00 99.4 108 20 130/82 (98) 99 10/04/18 04:00 99.4 90 18 121/79 (93) 99 10/04/18 04:00 92 10/04/18 00:00 98.0 76 18 100/77 (85) 100 10/03/18 23:45 83 10/03/18 21:00 Room Air 10/03/18 20:00 98.2 83 18 117/77 (90) 96 10/03/18 19:30 86 10/03/18 16:00 89 10/03/18 16:00 99.1 119 18 121/80 (94) 97 10/03/18 12:00 95 10/03/18 12:00 98.5 102 18 121/80 (94) 95 Intake and Output 10/03/18 10/04/18 19:00 07:00 Intake Total 720 ml Output Total 1450 ml 1000 ml Balance -730 ml -1000 ml Intake Oral 720 ml Output Urine Total 1450 ml 1000 ml # Voids 3 Laboratory Tests 10/03/18 18:00: Urine Color Pale yellow, Urine Appearance Clear, Urine pH 7, Urine Specific [place] 1.005, Urine Protein Negative, Urine Glucose (UA) 4+H, Urine Ketones Negative, Urine Blood Negative, Urine Nitrite Negative, Urine Bilirubin Negative , Urine Urobilinogen 1H, Urine Leukocyte Esterase Negative Height (Feet): 5 Height (Inches): 5.00 Weight (Pounds): 150 Objective General Appearance: WD/WN, alert Neck: supple Cardiovascular: normal peripheral pulses, normal rate, regular rhythm Respiratory/Chest: chest wall non-tender, lungs clear, normal breath sounds, no respiratory distress Abdomen: normal bowel sounds, non tender, soft, no organomegaly Edema: no edema noted Arm (L), no edema noted Arm (R), no edema noted Leg (L), no edema noted Leg (R), no edema noted Pedal (L), no edema noted Pedal (R), no edema noted Generalized Nash Caban MD Oct 04, 2018 10:39
[2018-10-04 12:00] VITALS: BP 139/87
[2018-10-04 16:00] VITALS: BP 126/86
--- NOTE | 2018-10-04 19:30 | NUR ---
NURSE NOTES: Received report from Carol Mora RN. Patient in bed AAO X4 romanian speaking with no complaints of acute pain at this time, kept clean, dry, and comfortable in bed. On RA with no S/S of resp distress at this time, saturating at 96-98%. IV line intact and patent with prescribed fluids ordered, tolerating well. BRP with minimal assist PRN. Placed on continuous cardiac monitoring per protocol. Safety precaution in place; siderails x2 up, call light within reach, bed in lowest position, brakes and alarm on at all times. Needs and wants anticipated and attended, will continue plan of care and monitor for any changes noted.
[2018-10-04 20:00] VITALS: BP 124/82
--- NOTE | 2018-10-04 20:06 | General Progress Note ---
Assessment/Plan Problem List: (1) Alcohol dependence ICD Codes: F10.20 - Alcohol dependence, uncomplicated SNOMED: 22109962 (2) Alcohol withdrawal ICD Codes: F10.239 - Alcohol dependence with withdrawal, unspecified SNOMED: 683623802 Status: doing well, stable, progressing Assessment/Plan Valium 10mg was dced thiamin folate Ativan prn zyprexa Subjective Neurologic/Psychiatric: Reports: anxiety, depressed, emotional problems Allergies: Coded Allergies: No Known Allergies (Unverified , 09/30/18) Objective Last 24 Hour Vital Signs Date Time Temp Pulse Resp B/P (MAP) Pulse Ox O2 Delivery O2 Flow Rate FiO2 10/04/18 16:00 99 10/04/18 16:00 99.6 94 20 126/86 (99) 98 10/04/18 13:37 99.1 10/04/18 12:00 101 10/04/18 12:00 100.4 103 20 139/87 (104) 98 10/04/18 09:00 Room Air 10/04/18 08:00 106 10/04/18 08:00 99.4 108 20 130/82 (98) 99 10/04/18 04:00 99.4 90 18 121/79 (93) 99 10/04/18 04:00 92 10/04/18 00:00 98.0 76 18 100/77 (85) 100 10/03/18 23:45 83 10/03/18 21:00 Room Air Intake and Output 10/03/18 10/04/18 19:00 07:00 Intake Total 720 ml Output Total 1450 ml 1000 ml Balance -730 ml -1000 ml Intake Oral 720 ml Output Urine Total 1450 ml 1000 ml # Voids 3 Height (Feet): 5 Height (Inches): 5.00 Weight (Pounds): 150 General Appearance: WD/WN, no apparent distress, alert Neurologic: oriented x 3, responsive Ashleigh Sutherland MD Oct 04, 2018 20:06
[2018-10-04] MEDS: Thiamine 100mg in D5W 55ml IVPB SCH (20:38)
[2018-10-04] MEDS: Folic Acid 1 MG, Magnesium Sulfate 2,000 MG, Multivitamin - 12 Injection 10 ML in Sodiu... IV SCH (21:03)
[2018-10-05] VITALS: BP 137/82
--- NOTE | 2018-10-05 03:20 | NUR ---
NURSE NOTES: Patient in bed resting with no complaints of acute pain at this time. Will continue to monitor
[2018-10-05 04:00] VITALS: BP 140/84
[2018-10-05] MEDS: LORazepam Inj 2mg/ml 1ml IV PRN ×4 (04:26→21:03)
--- NOTE | 2018-10-05 07:45 | NUR ---
NURSE NOTES: Received report from SUKH Bateman. Patient in bed resting, no active s/s cardiac, respiratory distress noticed at this time, denies pain at this time. Patient on room air SR with HR 96, AOx4. IV on left FA 20 G, right FA 20 G asymptomatic, patent, intact. Patient request to take a break from IV fluid. Bed in lowest position, side rails upx2, call light within reach. Will continue to monitor.
--- NOTE | 2018-10-05 07:46 | NUR ---
HAND-OFF: Report given to Jeanette Shi RN. Patient in stable condition, endorsed plan of care.
[2018-10-05 08:00] VITALS: BP 119/80
[2018-10-05] MEDS: Maxitrol Opth Susp 5ml BOTH EYES SCH ×3 (08:08→17:53)
--- NOTE | 2018-10-05 08:44 | General Progress Note ---
Assessment/Plan Problem List: (1) Multiple injuries due to trauma ICD Codes: T07.XXXA - Unspecified multiple injuries, initial encounter SNOMED: 995710475 (2) Alcohol withdrawal ICD Codes: F10.239 - Alcohol dependence with withdrawal, unspecified SNOMED: 366722034 (3) Alcohol dependence ICD Codes: F10.20 - Alcohol dependence, uncomplicated SNOMED: 27559717 Status: stable Assessment/Plan add metformin ativan prn pt/ot dc planning Subjective Allergies: Coded Allergies: No Known Allergies (Unverified , 09/30/18) Subjective no events. resting. labs noted. no fevers. increased a1c Objective Last 24 Hour Vital Signs Date Time Temp Pulse Resp B/P (MAP) Pulse Ox O2 Delivery O2 Flow Rate FiO2 10/05/18 08:00 99.4 116 21 119/80 (93) 98 10/05/18 04:00 96 10/05/18 04:00 98.7 93 18 140/84 (102) 99 10/05/18 00:00 90 10/05/18 00:00 98.1 81 18 137/82 (100) 95 10/04/18 21:00 Room Air 10/04/18 20:00 103 10/04/18 20:00 99.2 93 18 124/82 (96) 98 10/04/18 16:00 99 10/04/18 16:00 99.6 94 20 126/86 (99) 98 10/04/18 13:37 99.1 10/04/18 12:00 101 10/04/18 12:00 100.4 103 20 139/87 (104) 98 10/04/18 09:00 Room Air Intake and Output 10/04/18 10/05/18 19:00 07:00 Intake Total 880 ml Output Total 800 ml Balance 80 ml Intake Oral 880 ml Output Urine Total 800 ml # Voids 2 # Bowel Movements 1 Height (Feet): 5 Height (Inches): 5.00 Weight (Pounds): 139 Objective General Appearance: WD/WN, alert Neck: supple Cardiovascular: normal peripheral pulses, normal rate, regular rhythm Respiratory/Chest: chest wall non-tender, lungs clear, normal breath sounds, no respiratory distress Abdomen: normal bowel sounds, non tender, soft, no organomegaly Edema: no edema noted Arm (L), no edema noted Arm (R), no edema noted Leg (L), no edema noted Leg (R), no edema noted Pedal (L), no edema noted Pedal (R), no edema noted Generalized Nash Caban MD Oct 05, 2018 08:44
--- NOTE | 2018-10-05 09:03 | NUR ---
CASE MANAGEMENT:REVIEW 10/05/18 SI: ALCOHOL DEPENDENCE/WITHDRAWAL 99.4 116 21 119/80 98% ON RA IS: VALIUM PO Q2HRS PRN PROTONIX PO QD ZYPREXA PO QHS IV BANANA BAG @100/HR IV THIAMINE Q24 IV ATIVAN Q2HRS PRN ANXIETY : TELEMETRY STATUS DCP: FROM HOME PLAN: PT EVAL PENDING
[2018-10-05] MEDS: metFORMIN 500mg tab ORAL SCH ×2 (09:23→17:53)
[2018-10-05 12:00] VITALS: BP 120/78
[2018-10-05 16:00] VITALS: BP 105/77
--- NOTE | 2018-10-05 19:30 | NUR ---
NURSE NOTES: Report received from Jeanette Shi RN. Pt is resting in bed in stable condition. Pt is sleeping but easily arousable to voice. Pt is on room air and breathing is even and unlabored. No acute distress noted. IV sites are noted to be asymptomatic, patent, and intact. Bed is placed in lowest position with brake engaged, side rails up x3, and bed alarm on. Call light and side table placed within reach. Will continue to monitor.
--- NOTE | 2018-10-05 19:40 | NUR ---
HAND-OFF: Report given to SUKH Perry.
[2018-10-05 20:00] VITALS: BP 105/68
[2018-10-05] MEDS: Thiamine 100mg in D5W 55ml IVPB SCH (20:56)
[2018-10-05] MEDS: Folic Acid 1 MG, Magnesium Sulfate 2,000 MG, Multivitamin - 12 Injection 10 ML in Sodiu... IV SCH (20:57)
--- NOTE | 2018-10-05 21:18 | General Progress Note ---
Assessment/Plan Problem List: (1) Alcohol dependence ICD Codes: F10.20 - Alcohol dependence, uncomplicated SNOMED: 97128238 (2) Alcohol withdrawal ICD Codes: F10.239 - Alcohol dependence with withdrawal, unspecified SNOMED: 586485834 Status: stable, progressing Assessment/Plan thiamin folate Ativan prn zyprexa Subjective Neurologic/Psychiatric: Reports: anxiety, depressed, emotional problems Allergies: Coded Allergies: No Known Allergies (Unverified , 09/30/18) Objective Last 24 Hour Vital Signs Date Time Temp Pulse Resp B/P (MAP) Pulse Ox O2 Delivery O2 Flow Rate FiO2 10/05/18 16:00 77 10/05/18 16:00 99.0 79 20 105/77 (86) 99 10/05/18 12:00 96 10/05/18 12:00 99.4 84 20 120/78 (92) 100 10/05/18 09:00 Room Air 10/05/18 08:00 99.4 116 21 119/80 (93) 98 10/05/18 08:00 120 10/05/18 04:00 96 10/05/18 04:00 98.7 93 18 140/84 (102) 99 10/05/18 00:00 90 10/05/18 00:00 98.1 81 18 137/82 (100) 95 Intake and Output 10/04/18 10/05/18 19:00 07:00 Intake Total 880 ml Output Total 800 ml Balance 80 ml Intake Oral 880 ml Output Urine Total 800 ml # Voids 2 # Bowel Movements 1 Height (Feet): 5 Height (Inches): 5.00 Weight (Pounds): 139 General Appearance: WD/WN, no apparent distress, alert Ashleigh Sutherland MD Oct 05, 2018 21:18
[2018-10-06] VITALS: BP 115/70
[2018-10-06 04:00] VITALS: BP_SYST 105; BP_SYST 117; BP_DIAS 68; BP_DIAS 78
[2018-10-06] MEDS: LORazepam Inj 2mg/ml 1ml IV PRN ×2 (04:11→09:24)
--- NOTE | 2018-10-06 07:26 | NUR ---
HAND-OFF: Report given to Lilly Fuentes RN. Pt is sleeping in bed in stable condition. No acute distress noted. Endorsed plan of care.
--- NOTE | 2018-10-06 07:29 | NUR ---
NURSE NOTES: Received report from Vicky/SUKH. Patient awake eating breakfast at bedside, No distress/SOB noted, Call light within reach, Bed in low position. Will continue plan of care.
[2018-10-06 08:00] VITALS: BP 132/87
[2018-10-06] MEDS: metFORMIN 500mg tab ORAL SCH (08:09)
[2018-10-06] MEDS: Maxitrol Opth Susp 5ml BOTH EYES SCH (08:09)
[2018-10-06] MEDS ORDERED: METFORMIN HCL500 M1 ORAL (09:14)
[2018-10-06] MEDS ORDERED: VITAMIN B-1100 MG ORAL (09:15)
[2018-10-06] MEDS ORDERED: FOLIC ACID1 MG ORAL (09:15)
--- NOTE | 2018-10-06 11:00 | NUR ---
NURSE NOTES: Discharge instruction given, Patient verbalized understanding. Heart monitor and IV removed, No sign of distress. Patient is in stable condition.
--- NOTE | 2018-10-06 11:05 | NUR ---
NURSE NOTES: I escorted patient out of the building. Patient left via taxi
--- NOTE | 2018-10-06 22:13 | General Progress Note ---
Assessment/Plan Problem List: (1) Alcohol dependence ICD Codes: F10.20 - Alcohol dependence, uncomplicated SNOMED: 08996376 (2) Alcohol withdrawal ICD Codes: F10.239 - Alcohol dependence with withdrawal, unspecified SNOMED: 072591793 Assessment/Plan thiamin folate Ativan prn zyprexa Subjective Neurologic/Psychiatric: Reports: anxiety Allergies: Coded Allergies: No Known Allergies (Unverified , 09/30/18) Objective Last 24 Hour Vital Signs Date Time Temp Pulse Resp B/P (MAP) Pulse Ox O2 Delivery O2 Flow Rate FiO2 10/06/18 09:00 Room Air 10/06/18 08:00 110 10/06/18 08:00 98.1 70 20 132/87 (102) 99 10/06/18 04:00 76 10/06/18 04:00 98.6 67 20 117/78 (91) 97 10/06/18 00:00 65 10/06/18 00:00 98.0 63 20 115/70 (85) 99 Intake and Output 10/05/18 10/06/18 19:00 07:00 Intake Total 240 ml Output Total 800 ml Balance -560 ml Intake Oral 240 ml Output Urine Total 800 ml # Voids 4 2 # Bowel Movements 1 Height (Feet): 5 Height (Inches): 5.00 Weight (Pounds): 139 General Appearance: WD/WN, no apparent distress, alert Ashleigh Sutherland MD Oct 06, 2018 22:13
--- NOTE | 2018-10-07 11:57 | Discharge Summary ---
Discharge Summary Discharge Summary _ DATE OF ADMISSION: 09/30/2018 DATE OF DISCHARGE: 10/06/2018 DISCHARGED BY: Dr. Nash Caban CONSULTANTS: Dr. Ashleigh Sutherland [facility] HOSPITAL COURSE: Patient is a 42-year-old male, who was found on the floor intoxicated. He was brought to the emergency room. He had severe agitation and alcohol withdrawal. On evaluation at ED, he had facial trauma. Blood work did not show any leukocytosis. Hemoglobin hematocrit were stable. LFTs were elevated. Serum alcohol level was 403. Facial CT moderate soft tissue contusions and old left medial and anteromedial orbital wall fracture. Head CT did not show any acute intracranial bleed, mass-effect or edema. There was soft tissue contusion on the right periorbital and left frontal temporal scalp. Spine CT was negative for fracture or malalignment. He was admitted for alcohol intoxication and alcohol withdrawal symptoms. He was given IV hydration. He was placed on banana bag. He was given thiamine , folate and Ativan. Psychiatrist was consulted. He was started on Valium 10 mg p.o. 3 times daily. He was given electrolyte replacement. Blood glucose was monitored. He was given metformin 500 mg twice daily. He had eye infection and was given Maxitrol suspension 3 times daily. He had low-grade fever. Chest x-ray and UA negative. He eventually defervesced. He was given PT mobility social service was consulted. Patient was given community resources for alcohol dependency. He was eventually discharged home. FINAL DIAGNOSES: Multiple injuries due to trauma Alcohol withdrawal Alcohol dependence DISPOSITION: Patient was discharged home. DISCHARGE MEDICATIONS: Refer to Discharge Medication List. DISCHARGE INSTRUCTIONS: Follow-up in a week. Abstain from alcohol. I have been assigned to complete a discharge summary on this account, I was not involved with the patient's management. Marisela Chapman NP Oct 07, 2018 11:57
== END 2018-10-06 11:05 | disposition home or self-care (01) | DRG 897 ==
LOC: EDBD 07:29 → EMR 07:51 → 2E 15:38 → EDBEDREQ 15:50
DX: F10.239 Alcohol dependence with withdrawal, unspecified (principal); K70.10 Alcoholic hepatitis without ascites; S00.81XA Abrasion of other part of head, initial encounter; S00.11XA Contusion of right eyelid and periocular area, initial encounter; S00.03XA Contusion of scalp, initial encounter; W01.0XXA Fall on same level from slipping, tripping and stumbling without subsequent striking against object, initial encounter
CPT/HCPCS: 36415; 70450; 70486; 71045; 72125; 80053; 80329; 81003; 82140; 83036; 83690; 85025; 93005; 96361; 96374; 96375; 99285; J2250; J8499